=== PATIENT | female | born 1955 | race Caucasian/White ===

== ENCOUNTER → 2020-11-10 13:44 | Outpatient (CLI) | payer MEDICARE, SELFPAY ==
--- NOTE | 2020-11-10 13:49 | US_ITS ---
APPROVED REPORT Exam Type: Ankle to Brachial Index Lab Systems Analyst: CLARITZA/JOVANNA RCS, RVS Indications Claudication: Rest Pain: Cold Sensitivity PAD History of Smoking CAD Pressures/Indices Right Indices Left Indices Brachial 171.00 mmHg Brachial 175.00 mmHg Low Thigh 152.00 mmHg 0.87 Low Thigh 155.00 mmHg 0.89 Calf 172.00 mmHg 0.98 Calf 164.00 mmHg 0.94 Ankle(PT) 133.00 mmHg 0.76 Ankle(PT) 177.00 mmHg 1.01 Ankle(DP) 162.00 mmHg 0.93 Ankle(DP) 161.00 mmHg 0.92 Digit 112.00 mmHg 0.64 Digit 142.00 mmHg 0.81 Findings Right first digit pressure below normal limits. Right pulses and waveforms dampened and diminished. Left first digit pressure below normal limits. RT MONTY=0.93 LT MONTY=1.01 RT TPI=0.64 LT TPI=0.81 Conclusion RT MONTY=0.93 LT MONTY=1.01 RT TPI=0.64 LT TPI=0.81 Normal appearing resting noninvasive lower extremity arterial study. Electronically signed by : Parish Mckinney MD 11/10/2020 16:03:35
== END ==
PROVIDERS: PCP Family Medicine; Visit Provider Internal Medicine
DX: E78.5 Hyperlipidemia, unspecified (principal); I10 Essential (primary) hypertension; I20.9 Angina pectoris, unspecified; Z72.0 Tobacco use; Z86.73 Personal history of transient ischemic attack (TIA), and cerebral infarction without residual deficits; Z95.5 Presence of coronary angioplasty implant and graft; I70.213 Atherosclerosis of native arteries of extremities with intermittent claudication, bilateral legs
CPT/HCPCS: 93923

== ENCOUNTER 2020-11-16 08:19 | Day surgery (SDC) | payer MEDICARE, SELFPAY ==
[2020-11-16] VITALS (21 sets, daily range): BP systolic 98–154; BP diastolic 61–92; PULSE 40–79; RESP 17–20; TEMP 36.3–36.8; O2SAT 93–100; BMI 31.0
--- NOTE | 2020-11-16 | IR_ITS ---
APPROVED REPORT Patient Location: Outpatient Belt Cleaner: KELLY Burkett RT (R) PROCEDURES Left heart catheterization Left ventriculogram Selective coronary angiogram Drug-eluting stent deployment to the ostial proximal mid and distal dominant right coronary in a contiguous manner INDICATION Class III-IV angina pectoris, Severe in-stent restenosis, Coronary artery disease Informed consent was obtained prior to the procedure. COMPLICATIONS NONE Estimated Blood Loss: LESS THAN 10 ML TECHNIQUE One percent lidocaine used to anesthetize the right anterior aspect of the wrist. The right radial artery was accessed via the Seldinger technique. A 6 Belarusian sheath was placed in the right radial artery. 2.5 mg of verapamil, 800 mcg of nitroglycerin, 1mg Lidocaine and 5000 U Heparin were given through the arterial sheath. A Poppa catheter was used to perform left heart catheterization left ventriculogram and left coronary angiography. The Poppa catheter would not cannulate the right coronary artery. Patient was having significant spasm in the right radial artery therefore it was decided to use 4 Belarusian 3 DRC guide catheter just to perform diagnostic angiography. The left coronary system was going to be medical management. Because of this the 4 Belarusian catheter was used to perform angiography. Still cannot get adequate images therefore therapeutic heparin was administered and a Choice PT extra-support wire was placed distally in the right coronary artery to allow for catheter insertion and perform diagnostic angiography. This demonstrated a focal greater than 90% stenosis in the distal right coronary artery. There was moderate tortuosity throughout. At this point the 4 Belarusian sheath was exchanged and a 6 Belarusian 3 DRC guide catheter was used to intubate the right coronary artery. A Choice PT wire is placed distally. A guide liner was required in order to advance the balloon due to poor guide support. The balloon was initially inflated at the ostial level to allow advancement of the guide liner. The balloon was then advanced distally and inflated which allowed the advancement of the guide liner. There was predilatation distally. A 3 mm x 38 mm resolute Denver stent was placed in the distal segment deployed at 20 andree. Following this a 3.5 x 30 mm resolute Santana stent was then placed in the ostial proximal segment overlapping the first stent and deployed at 20 andree. An additional 2 5 mm balloon was required distally to further dilate and advance the guide liner. This allowed delivery of a 3 mm x 30 mm resolute Santana stent to be placed distal to the first stent which was placed yet still overlapping the stent and then deployed at 14 andree. The balloon was brought back and deployed at 2022 and 24 andree throughout the distal mid proximal and ostial segment of the right coronary. At the end of procedure NEY-3 flow was present as was NEY-3 flow at the beginning of the procedure. The end of the procedure the apparatus was removed Brilinta 180 mg orally was given on the table along with aspirin 325 the sheath was removed and hemostasis was achieved using TR banding patient was transferred to the postop holding in stable condition ANGIOGRAPHIC RESULTS The left main artery Has an ostial eccentric 10 to 20% stenosis The left anterior descending artery Has a stent in the proximal segment with mild 10% in-stent restenosis. The mid LAD then has an additional concentric 40% stenosis and is patent. A large diagonal artery has 30% proximal stenosis The circumflex artery Is a nondominant vessel gives rise to a moderate sized ramus intermedius which has proximal smooth 30 to 40% stenosis. The circumflex artery itself h
[2020-11-16 08:26] LABS: Coronavirus 19, PCR Not Detected (NotDetected); Influenza A, PCR Not Detected (NotDetected); Influenza B, PCR Not Detected (NotDetected)
--- NOTE | 2020-11-16 08:26 | CA_ITS ---
APPROVED REPORT EXAM: Comprehensive 2D, Doppler, and color-flow Echocardiogram Computer Systems Auditor: Shey Cantrell CRT Ht: 5 ft 0 in Wt: 159lbs BSA: 1.69 BP: 168/84 mmHg Indications: Chest Pain, Shortness of Breath, Fatigue, Peripheral Edema, Hyperlipidemia, Hypertension/HDD, 14 stents, TIA, smoker 2D Dimensions Aortic Root 1.95 cm LA Volume 27.50 mL LA Volume Index 16.30 mL/m2 (M/F) 16-34 M-Mode Dimensions RVDd 2.70 cm (0.9-2.6) LA Diam 4.05 cm (1.9-4.0) LVDd 4.39 cm (3.5-5.7) Ao Diam 3.57 cm (2.0-3.7) LVDs 2.94 cm (3.5-5.7) IVSd 1.85 cm (0.6-1.1) PWd 0.64 cm (0.6-1.1) EF (Teich) 61.80% FS 33.00% EDV (Teich) 87.20 mL TAPSE 1.37 (<1.7) ESV (Teich) 33.30 mL LV Diastology E Decel Time 257.00 (160-240 msec) E/A Ratio 0.60 MED E' 8.40 (< 7 cm/sec) MED A' 5.00 cm/s E'/MED E' Ratio 8.30 (>14) LAT E' 9.70 (<10 cm/sec) LAT A' 8.50 cm/s E/LAT E' Ratio 7.19 (>14) Aortic Valve AO Peak GR. 5.90 mmHg Mitral Valve MV E Max Josr. 70.00 (40-130 cm/s) MV A Velocity 116.00 (40-130 cm/s) E/A Ratio 0.60 MV Decel. Time 257.00 (160-240 ms) MV PHT 75.00 ms Pulmonary Valve PV Peak Velocity 69.00 (50-150 cm/s) Tricuspid Valve TR P. Velocity 214.00 cm/s RAP Estimate 10.00 mmHg RVSP 28.30 mmHg Left Ventricle Left atrium is mildly enlarged, left ventricle is normal size, mild concentric left ventricular hypertrophy, visually estimated ejection fraction 50% with no regional wall motion abnormality, grade 1 diastolic dysfunction seen without tissue Doppler evidence of raise left atrial pressure. Right Ventricle Right atrium and right ventricle are normal size and contractility. Aortic Valve Aortic valve is minimally thickened and fibrosed, there is no aortic stenosis or aortic insufficiency. Mitral Valve Mitral valve is grossly normal, there is mild mitral regurgitation. Tricuspid Valve Tricuspid valve grossly normal, there is mild tricuspid regurgitation, tricuspid regurgitation jet velocity is inadequate for calculation of the right ventricular systolic pressure. Pulmonic Valve Pulmonic valve is poorly visualized. Great Vessels Aortic root is normal size. Inferior vena cava is mildly dilated with normal inspiratory collapse. Pericardium Small pericardial effusion noted. Conclusion 1. Mildly enlarged left atrium, normal left ventricular size, mild concentric left ventricular hypertrophy, visually estimated ejection fraction 50% with no obvious regional wall motion abnormality, grade 1 diastolic dysfunction seen without tissue Doppler evidence of raise left atrial pressure. 2. Mild mitral and tricuspid regurgitation. 3. Small pericardial effusion noted. 4. Inferior vena cava is mildly dilated with normal inspiratory collapse. Electronically signed by : Russell Tobar, 11/16/2020 21:01:31
[2020-11-16 08:47] LABS: Basophils # 0.1 K/mm3 (0-0.2); Eosinophils # 0.1 K/mm3 (0.0-0.4); Eosinophils % 1.5 % (0.1-12.0); Hematocrit 31.5 % (37.0-47.0); Hemoglobin 10.6 g/dL (12.2-16.2); Lymphocytes # 1.5 K/mm3 (0.7-4.5); Lymphocytes % 21.8 % (10-50); Mean Corpuscular HGB Conc 33.6 g/dL (31.8-35.4); Mean Corpuscular Hemoglobin 31.6 pg (27.0-31.2); Mean Platelet Volume 8.4 fl (7.4-10.4); Monocytes # 0.5 K/mm3 (0.1-1.0); Monocytes % 6.8 % (1.7-9.3); Neutrophils # 4.8 K/mm3 (1.8-7.8); Neutrophils % 68.9 % (37.0-80.0); Platelet Count 286 K/mm3 (142-424); Red Blood Count 3.36 M/mm3 (4.20-5.40)
[2020-11-16 08:48] LABS: Chloride 110 mmol/L (98-107); Potassium 4.8 mmoL/L (3.5-5.1); Sodium 146 mmol/L (136-145)
[2020-11-16 08:51] LABS: Anion Gap 12.8 mEq/L (5-15); Blood Urea Nitrogen 19 mg/dl (7-17); Carbon Dioxide 28 mmol/L (22.0-30.0); Creatinine Clearance Estimated 64 mL/min (50-200); Estimated Glomerular Filt Rate 72 ml/min (>60); GFR (African American) 87 ML/MIN (>60)
[2020-11-16 08:52] LABS: Glucose 105 mg/dl (74-100)
[2020-11-16 14:41] LABS: CATHL Activated Clotting Time 255 SEC (74-125)
[2020-11-16 14:44] LABS: CATHL Activated Clotting Time 125 SEC (74-125)
[2020-11-16 14:45] LABS: CATHL Activated Clotting Time 344 SEC (74-125)
--- NOTE | 2020-11-16 14:51 | PC.NURSE ---
attempted to take 2 of air out of tracelet and patient started to bleed, replaced with 2 of air. will attempt again in 15mins
--- NOTE | 2020-11-16 20:02 | ECG_ITS ---
APPROVED REPORT Exam: Resting ECG HR:54 bpm ECG Measurements Heart Rate 54 AXES TX 132 P 45 QRSd 88 QRS 40 QT 498 T 77 QTc 472 Conclusion Sinus bradycardia Low voltage QRS Nonspecific T wave abnormality Prolonged QT Abnormal ECG Electronically signed by : Ger Morales MD 11/19/2020 11:40:39
--- NOTE | 2020-11-16 20:12 | XR_ITS ---
PROCEDURE INFORMATION: Exam: XR Chest Exam date and time: 11/16/2020 8:12 PM Age: 65 years old Clinical indication: Shortness of breath TECHNIQUE: Imaging protocol: XR of the chest. Views: 1 view. COMPARISON: No relevant prior studies available. FINDINGS: Lungs: Opacity at the medial right lung base. Pleural spaces: No pneumothorax. Heart/Mediastinum: Partial obscuration of the lower right heart border. No cardiomegaly. Bones/joints: No acute abnormality. IMPRESSION: Opacity at the medial right lung base which may be secondary to atelectasis, pneumonia, or soft tissue overlap for example secondary to diaphragmatic eventration.
[2020-11-16 20:32] LABS: POC Glucose,Bedside 127 (70-110)
--- NOTE | 2020-11-16 21:38 | PC.NURSE ---
RN went to assess patient and patient complained of increased Shortness of breath. Vital signs were stable. see documentation for vital signs. 2L O2 applied to patient after vitals obtained. no complaints of pain voiced to RN. chief passenger ship steward/stewardess called nurse and notified of patients heart rate in 30's. RN Paged Bj at 8pm. Orders given were to call a rapid red and obtain a stat EKG. rapid red called at 8:01 PM. and ekg was also performed at this time. Dr. Wasserman consulted with Dr. Gage, and bj advised to d/c brillinta and give 300 mg of plavix. No further concerns noted by RN. O2 removed around 9:30 pm, and patient tolerated well.
[2020-11-17] VITALS: BP 113/53; PULSE 68; PULSE 70; RESP 17; TEMP 36.7; O2SAT 92
--- NOTE | 2020-11-17 03:21 | PC.NURSE ---
A&Ox4. No complaints of pain noted. No more complaints of SOA. Patient ambulated to bathroom with stand by assist. VSS. No further concerns voiced to RN
--- NOTE | 2020-11-17 03:54 | PC.NURSE ---
Right radial cath site is clean dry and intact. Patient does not complain of pain at site.
[2020-11-17 04:00] VITALS: BP 127/69; PULSE 60; PULSE 67; RESP 18; TEMP 37.2; O2SAT 95
[2020-11-17 05:05] VITALS: BMI 31.2
[2020-11-17 07:36] LABS: Basophils # 0.1 K/mm3 (0-0.2); Basophils % 0.7 % (0.1-2.0); Eosinophils # 0.1 K/mm3 (0.0-0.4); Eosinophils % 0.6 % (0.1-12.0); Hematocrit 29.6 % (37.0-47.0); Hemoglobin 10.1 g/dL (12.2-16.2); Lymphocytes # 1.7 K/mm3 (0.7-4.5); Mean Corpuscular HGB Conc 34.1 g/dL (31.8-35.4); Mean Corpuscular Hemoglobin 31.8 pg (27.0-31.2); Mean Corpuscular Volume 93.4 fl (81-99); Mean Platelet Volume 7.9 fl (7.4-10.4); Monocytes # 0.4 K/mm3 (0.1-1.0); Monocytes % 4.8 % (1.7-9.3); Neutrophils # 6.3 K/mm3 (1.8-7.8); Platelet Count 291 K/mm3 (142-424); Red Blood Count 3.17 M/mm3 (4.20-5.40); Red Cell Distribution Width 13.8 % (11.5-17.5); White Blood Count 8.4 K/mm3 (4.8-10.8)
[2020-11-17 07:45] LABS: Chloride 110 mmol/L (98-107); Potassium 3.9 mmoL/L (3.5-5.1); Sodium 143 mmol/L (136-145)
[2020-11-17 07:48] LABS: Blood Urea Nitrogen 15 mg/dl (7-17); Calcium 9.1 mg/dl (8.4-10.2); Carbon Dioxide 25 mmol/L (22.0-30.0); Creatinine Clearance Estimated 64 mL/min (50-200); Estimated Glomerular Filt Rate 100 ml/min (>60); GFR (African American) 121 ML/MIN (>60); Glucose 107 mg/dl (74-100)
[2020-11-17 08:00] VITALS: BP 140/75; PULSE 59; PULSE 67; RESP 18; TEMP 36.4; O2SAT 93
[2020-11-17 08:05] LABS: Anion Gap 11.9 mEq/L (5-15)
--- NOTE | 2020-11-17 08:40 | HMH.PHACLD ---
Annalise Salazar has received discharge medication counseling on the following medications: -PLAVIX -ALDACTONE -LASIX -ALTACE
--- NOTE | 2020-11-17 09:00 | PC.NURSE ---
Went over DC instruction with patient, she verbalized understanding. Cath site is covered with gauze and tegaderm. It is clean, dry and intact. Sling in place to remind patient to not use right wrist.
== END 2020-11-17 11:23 | disposition home or self-care (01) ==
LOC: CATHLAB 08:20 → 2ND 14:22
PROVIDERS: PCP Family Medicine; Visit Provider Internal Medicine
DX: E78.5 Hyperlipidemia, unspecified (principal); I10 Essential (primary) hypertension; I70.223 Atherosclerosis of native arteries of extremities with rest pain, bilateral legs; F17.210 Nicotine dependence, cigarettes, uncomplicated; Z86.73 Personal history of transient ischemic attack (TIA), and cerebral infarction without residual deficits; Z95.5 Presence of coronary angioplasty implant and graft; I25.110 Atherosclerotic heart disease of native coronary artery with unstable angina pectoris; T82.855A Stenosis of coronary artery stent, initial encounter; Y83.1 Surgical operation with implant of artificial internal device as the cause of abnormal reaction of the patient, or of later complication, without mention of misadventure at the time of the procedure
CPT/HCPCS: C1874; 36415; 71045; 80048; 82962; 85025; 85347; 92928; 93005; 93306; 93458; 99152; 99153; C1725; C1769; C1894; C9600; J1644; Q9967; U0003

== ENCOUNTER → 2021-02-28 13:03 | Outpatient (CLI) | payer MEDICARE, SELFPAY ==
[2021-02-28 13:50] VITALS: PULSE 81; PULSE 84
--- NOTE | 2021-02-28 14:54 | CT_ITS ---
PROCEDURE: CT LUNG SCREENING CLINICAL INDICATION: lung cancer screening COMPARISON: No exams were available for comparison TECHNIQUE: The exam was performed on a GE Light Speed [address] scanner using 2.90 mGy CTDI. A low dose helical CT CHEST was performed on a multi-detector scanner. All CT scans at the facility use one or more dose reduction, viz: automated exposure control, ma/kV adjustment per patient size (including targeted exams where dose is matched to indication, i.e. head), or iterative reconstruction technique. The LDCT was performed in a facility that meets the criteria for the screening program. Data regarding this exam was submitted to ACR which is an approved registry. The order for this exam indicates that it came as a result of a lung cancer screening counseling shard decision-making visit that included all the elements required of such a visit including smoking cessation. The radiologist interpreting this exam meets the CMS criteria for the LDCT lung cancer screening program. The exam is reported using the Lung-RADS classification scale and reported to the ACR registry. NOTE: This study was performed for the specific purposes of lung cancer screening and is not an alternative to diagnostic chest CT. RADIATION DOSE: CTDI vol(CT dose Index-volume) = 2.90mG DLP (Dose Length Product) = 96.38 mGcm FINDINGS: 3 mm fissural nodule left major fissure benign-appearing. No suspicious pulmonary nodules identified OTHER FINDINGS: Coronary artery calcifications and/or stents. There is thickening of the pericardium anteriorly measuring up to 10 mm consistent with small pericardial effusion. IMPRESSION: Lung-RADS Category 2 Benign Appearance or Behavior Follow-up: Continue annual screening with LDCT in 12 months Thickening of the pericardium suggesting small pericardial effusion Dictated by: Parish Mckinney MD 03/05/2021 08:48 Parish Mckinney MD in [place] 03/05/2021 08:48
== END ==
PROVIDERS: PCP Family Medicine; Visit Provider Internal Medicine Pulmonary Disease
DX: R06.00 Dyspnea, unspecified (principal); F17.210 Nicotine dependence, cigarettes, uncomplicated
CPT/HCPCS: 71271; 94060; 94618; 94640; 94727; 94729

== ENCOUNTER 2022-10-03 13:47 | Observation (INO) | payer MEDICARE, SELFPAY ==
--- NOTE | 2022-10-03 13:56 | XR_ITS ---
FINAL REPORT CLINICAL HISTORY: chest pain, patient to have a cardiac cath procedure tomorrow morning, prior cardiac caths with stents place. Smoker. FINDINGS: The heart size is normal. The mediastinum is within normal limits. There is no acute cardiopulmonary process. There is no pleural effusion. There is no pneumothorax. The bony thorax is intact. IMPRESSION: No acute cardiopulmonary process. Reviewed, Interpreted and Dictated by Morgan Bertrand MD Transcribed by Yordy Jordan Authenticated and [facility]
[2022-10-03 14:04] VITALS: BP 134/82; PULSE 89; RESP 17; TEMP 37; O2SAT 97; BMI 37.4
--- NOTE | 2022-10-03 14:07 | HMH.PHAINT1 ---
Pharmacy Intervention Comments: MEDICATION RECONCILIATION COMPLETED ON PATIENT USING EXTERNAL FILL HISTORY FROM PHARMACY. -CAMELIA QUEZADA, SUSANNAD
[2022-10-03 16:00] VITALS: BP 107/65; PULSE 67; RESP 15; O2SAT 98
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
--- NOTE | 2022-10-03 16:07 | EXP.CARD.PN ---
Subjective Subjective Date: 10/03/22 Time: 16:07 Principal diagnosis: chest pain Interval history: Pt was seen in office today. Note from office visit Patient here for thinks heart is giving out Has been having cp & pressure with activity & at rest SOB with activity & laying down Dizziness & lightheadedness Swelling in left leg sometimes & hands Numbness in arms sometimes Fatigue CAD-having angina. SAEID NOV 2020. Hx of SAEID(total 14). DAPT Plavix/asa. HTN-BP stable.Patient weight up 5 lbs HLD-on statin therapy Tobacco abuse present Tobacco cessation advised and counseled. Having unstable angina. Offered hospital admission, patient is agreeable. PLAN: Admit-Typical angina. RTC after hosp discharge. Exam Data for Last 24 hours Vital signs and Labs for Last 24 Hours: Temp Pulse Resp BP Pulse Ox 98.6 F 89 17 134/82 97 10/03/22 14:04 10/03/22 14:04 10/03/22 14:04 10/03/22 14:04 10/03/22 14:04 I & O for Last 24 hours: Intake & Output 10/01/22 10/02/22 10/03/22 10/04/22 11:59 11:59 11:59 11:59 Intake Total 0 / 0 Balance 0 / 0 Weight 191 lb 9 oz Constitutional Constitutional: no acute distress *Routine HEENT Exam Head: Present normocephalic Eye: Present EOMI and PERRL ENT: Present mucous membranes moist *Routine Neck Exam Neck: Present supple; Absent lymphadenopathy *Routine Respiratory Exam Respiratory: Present CTA bilaterally *Routine Cardiovascular Exam Cardiovascular: Present RRR *Routine Abdominal Exam Abdominal: Present soft and normoactive bowel sounds; Absent tenderness *Routine Extremities Exam Extremities: Absent cyanosis, clubbing or edema *Routine Skin Exam Skin: Present warm; Absent rash *Routine Neurological Exam Neurological: Present alert and oriented X3 Progress Note: A&P Assessment and plan (1) Typical angina: Status: Acute (2) Coronary artery disease: Problem details: NOV 2020-Successful reconstruction of the dominant right coronary severe disease reduced to 0% with 3 contiguous drug-eluting stents as described above Persistent severe stenosis in a small circumflex artery which is severe however not appropriate for percutaneous intervention Mild to moderate disease in the LAD which is also nonflow limiting Reduced ejection fraction with mild anterior wall hypokinesis Moderate to severely elevated LVEDP Status: Chronic (3) History of coronary artery stent placement: Status: Chronic (4) HTN (hypertension): Status: Chronic (5) HLD (hyperlipidemia): Status: Chronic (6) Tobacco abuse: Status: Chronic Assessment and Plan Assessment and Plan for All Diagnoses:: Admitted for angina with plans for LHC in AM. NPO after midnight. Check labs Continue home meds of aspirin 81 mg daily Plavix 75 mg daily Continue Coreg but increase to 6.25 mg twice daily Furosemide 40 mg daily Spironolactone 50 mg daily Rosuvastatin 10 mg daily Ramipril 5 mg daily Potassium 10 mEq daily
[2022-10-03 16:11] VITALS: PULSE 80
[2022-10-03 17:42] LABS: Coronavirus 19, PCR Not Detected (NotDetected); Influenza A, PCR Not Detected (NotDetected); Influenza B, PCR Not Detected (NotDetected)
[2022-10-03 18:03] LABS: Troponin I < 0.01 ng/ml (0.00-0.034)
--- NOTE | 2022-10-03 18:17 | PC.NURSE ---
A&OX4. TOLERATING RA WELL. PT UP INDEPENDENTLY IN ROOM. HAS BEEN QUITE ANXIOUS, BUT SEEMS TO BE BETTER NOW. HAS HAD SOME CHEST PAIN, TX WITH SL AND TD NITRO, EFFECTIVENESS NOTED. CONSENT SIGNED FOR HEART CATH TOMORROW. PT HAS NO OTHER NEEDS THUS FAR. VSS.
[2022-10-03 20:00] VITALS: BP 111/47; PULSE 70; PULSE 73; RESP 16; TEMP 36.6; O2SAT 95
[2022-10-03 21:19] LABS: POC Glucose,Bedside 90 (70-110)
--- NOTE | 2022-10-03 21:37 | PC.NURSE ---
pt refused 2100 dose of lipitor 20mg. stated it makes me puke everytime. im not taking that
--- NOTE | 2022-10-03 22:05 | PC.NURSE ---
pt took shower
[2022-10-03 23:57] LABS: Troponin I < 0.01 ng/ml (0.00-0.034)
[2022-10-04] VITALS (22 sets, daily range): BP systolic 87–123; BP diastolic 53–86; PULSE 57–88; RESP 15–18; TEMP 36.3–36.9; O2SAT 89–100; BMI 38.3
[2022-10-04 06:06] LABS: Chloride 103 mmol/L (98-107); Sodium 136 mmol/L (136-145)
[2022-10-04 06:07] LABS: Potassium 4.7 mmoL/L (3.5-5.1)
[2022-10-04 06:08] LABS: Basophils # 0.1 K/mm3 (0-0.2); Basophils % 0.8 % (0.1-2.0); Eosinophils # 0.2 K/mm3 (0.0-0.4); Eosinophils % 3.1 % (0.1-12.0); Hemoglobin 11.8 g/dL (12.2-16.2); Lymphocytes # 1.9 K/mm3 (0.7-4.5); Lymphocytes % 33.7 % (10-50); Mean Corpuscular HGB Conc 32.8 g/dL (31.8-35.4); Mean Corpuscular Hemoglobin 29.1 pg (27.0-31.2); Mean Corpuscular Volume 88.5 fl (81-99); Mean Platelet Volume 8.3 fl (7.4-10.4); Monocytes # 0.4 K/mm3 (0.1-1.0); Monocytes % 6.6 % (1.7-9.3); Neutrophils # 3.2 K/mm3 (1.8-7.8); Neutrophils % 55.8 % (37.0-80.0); Platelet Count 212 K/mm3 (142-424); Red Blood Count 4.07 M/mm3 (4.20-5.40); White Blood Count 5.8 K/mm3 (4.8-10.8)
[2022-10-04 06:09] LABS: Alanine Aminotransferase 20 U/L (12-78); Albumin Level 3.6 g/dl (3.5-5.0); Albumin/Globulin Ratio 1.4 (1.1-1.8); Alkaline Phosphatase 91 U/L (38-126); Anion Gap 12.7 mEq/L (5-15); Aspartate Amino Transferase 23 U/L (14-36); Bilirubin,Total 0.3 mg/dl (0.2-1.3); Blood Urea Nitrogen 26 mg/dl (7-17); Calcium 9.2 mg/dl (8.4-10.2); Carbon Dioxide 25 mmol/L (22.0-30.0); Cholesterol 166 mg/dl (140-200); Creatinine Clearance Estimated 70 mL/min (50-200); Estimated Glomerular Filt Rate 50 ml/min (>60); GFR (African American) 60 ML/MIN (>60); Globulin 2.6 g/dL (1.3-3.2); Glucose 110 mg/dl (74-100); Total Protein,Serum 6.2 g/dl (6.3-8.2); Triglycerides 360 mg/dl (30-150); VLDL Cholesterol 72 mg/dL (0-40)
[2022-10-04 06:10] LABS: Chol/HDL Ratio 7.5 (1-3.5); HDL Cholesterol 22 mg/dl (40-60); Magnesium 2.4 mg/dl (1.6-2.3)
[2022-10-04 06:20] LABS: Direct LDL Cholesterol 88.02 mg/dL (100-129)
[2022-10-04 07:04] LABS: Troponin I < 0.01 ng/ml (0.00-0.034)
--- NOTE | 2022-10-04 08:51 | EXP.CARD.PN ---
Subjective Subjective Date: 10/04/22 Time: 08:51 Principal diagnosis: chest pain Interval history: 66-year-old white female in bed in no acute distress. She relates having some chest discomfort overnight that resolved with both sublingual nitroglycerin and nitro patch. Unfortunately patch rubbed off overnight and she complains of some mild chest discomfort this morning rated as a 2 out of 10. We will reapply Nitropatch at this time with plans to proceed with left heart catheterization later today. Troponins this admission are normal Exam Data for Last 24 hours Vital signs and Labs for Last 24 Hours: Temp Pulse Resp BP Pulse Ox 98.0 F 73 18 87/53 L 93 L 10/04/22 07:26 10/04/22 07:26 10/04/22 07:26 10/04/22 07:26 10/04/22 07:26 Laboratory Results - last 24 hr 10/03/22 14:50: SARS-CoV-2 (PCR) Not detected, Influenza A Untype (PCR) Not detected, Influenza Type B (PCR) Not detected 10/03/22 17:21: Troponin I < 0.01 10/03/22 20:21: POC Glucose 90 10/03/22 23:15: Troponin I < 0.01 10/04/22 05:43: Troponin I < 0.01 10/04/22 05:43: WBC 5.8, RBC 4.07 L, Hgb 11.8 L, Hct 36.0 L, MCV 88.5, MCH 29.1, MCHC 32.8, RDW 14.0, Plt Count 212, MPV 8.3, Neut % (Auto) 55.8, Lymph % (Auto) 33.7, Labette % (Auto) 6.6, Eos % (Auto) 3.1, Baso % (Auto) 0.8, Neut # (Auto) 3.2, Lymph # (Auto) 1.9, Labette # (Auto) 0.4, Eos # (Auto) 0.2, Baso # (Auto) 0.1 10/04/22 05:43: Sodium 136, Potassium 4.7, Chloride 103, Carbon Dioxide 25, Anion Gap 12.7, BUN 26 H, Creatinine 1.10 H, Estimated Creat Clear 70, Estimated GFR 50 L, Est GFR ( Amer) 60, Glucose 110 H, Calcium 9.2, Magnesium 2.4 H, Total Bilirubin 0.3, AST 23, ALT 20, Alkaline Phosphatase 91, Total Protein 6.2 L, Albumin 3.6, Globulin 2.6, Albumin/Globulin Ratio 1.4, Triglycerides 360 H, Cholesterol 166, LDL Cholesterol Direct 88.02 L, VLDL Cholesterol 72 H, HDL Cholesterol 22 L, Cholesterol/HDL Ratio 7.5 H I & O for Last 24 hours: Intake & Output 10/01/22 10/02/22 10/03/22 10/04/22 11:59 11:59 11:59 11:59 Intake Total 978 / 978 Output Total 400 / 400 Balance 578 / 578 Weight 195 lb 6.4 oz Constitutional Constitutional: no acute distress *Routine Respiratory Exam Respiratory: Present wheezes *Routine Cardiovascular Exam Cardiovascular: Present RRR *Routine Extremities Exam Extremities: Absent edema Progress Note: A&P Assessment and plan (1) Typical angina: Status: Acute (2) Coronary artery disease: Problem details: NOV 2020-Successful reconstruction of the dominant right coronary severe disease reduced to 0% with 3 contiguous drug-eluting stents as described above Persistent severe stenosis in a small circumflex artery which is severe however not appropriate for percutaneous intervention Mild to moderate disease in the LAD which is also nonflow limiting Reduced ejection fraction with mild anterior wall hypokinesis Moderate to severely elevated LVEDP Status: Chronic (3) HTN (hypertension): Status: Chronic (4) HLD (hyperlipidemia): Status: Chronic (5) Tobacco abuse: Status: Chronic (6) History of CVA (cerebrovascular accident): Status: Chronic Assessment and Plan Assessment and Plan for All Diagnoses:: 1. Unstable angina Proceed with left heart catheterization today 2. Asthma Will give nebulizer treatment this morning due to wheezing on exam 3. Hyperlipidemia LDL 88 on statin therapy 4. Mild anemia with hemoglobin 11.8 5. Mild renal insufficiency with creatinine of 1.1 6. CAD with prior multivessel stenting, last in November 2020 with stents to RCA and circumflex arteries 7. Ischemic cardiomyopathy with EF 50% and anterior wall hypokinesis noted at the time of the cath 11/2020 Echo, 2020, EF 50% with no obvious regional wall motion abnormality, grade 1 diastolic dysfunction, mild MR/TR 8. Diastolic dysfunction with LVEDP 25-30 mmHg at the time of cath 2020 SCAI score A9
--- NOTE | 2022-10-04 09:31 | IR_ITS ---
APPROVED REPORT Patient Location: Inpatient PROCEDURES Selective coronary angiogram Drug-eluting stent deployment to the ostial proximal dominant right coronary artery with additional stenting to the distal right coronary artery in a noncontiguous manner INDICATION Coronary artery disease, Unstable angina, In-stent restenosis Informed consent was obtained prior to the procedure. COMPLICATIONS None Estimated Blood Loss: Less than 10 mls TECHNIQUE One percent lidocaine was used to anesthetize the right groin. The right femoral artery was accessed via the Seldinger technique. A 4-German sheath was placed in the right femoral artery. The JL-4 and JR-4 catheter was also used to perform left heart catheterization left ventriculogram and selective coronary angiogram. At the end of the procedure the patient was transferred to the post-op holding area in stable condition for arterial sheath removal. At the end the diagnostic angiogram therapeutic heparin is administered and the 4 German sheath was exchanged for a 6 German sheath. A 3 DRC guide catheter was placed in the dominant right coronary followed by Choice PT extra-support wire. A 4 mm x 12 mm [place] frontier stent was deployed at 24 andree in the proximal segment which reduce the stenosis to 0%. After the stent was deployed and the balloon removed there was still critical dampening therefore an additional 4 mm x 12 mm [place] frontier stent was deployed at 26 andree reducing the ostial stenosis to 0%. Following this the guide catheter was deep-seated and an additional 4 mm x 22 mm [place] frontier stent was deployed at 24 andree distally which reduce the stenosis to 0%. NEY-3 flow was present before and after the procedure. At the end of procedure the apparatus was removed the groin was reprepped sheath was removed and hemostasis was achieved using Perclose device patient was transferred to the postop putting in stable condition ANGIOGRAPHIC RESULTS The left main artery Has a stent in the ostial proximal mid distal segment which extends into the LAD. The stent is widely patent The left anterior descending artery Has a stent which originates off the left main artery and is widely patent in the proximal segment. There is an 80% stenosis at a 2 mm to 2.5 mm diameter mid LAD vessel. The entire LAD is small caliber The circumflex artery Nondominant proximally occluded The right coronary artery Large and dominant and has an ostial 90% stenosis followed by a proximal concentric 90% stenosis followed by an additional mid vessel concentric 90% stenosis followed by an additional diffuse 30% in-stent restenotic area The SALMERON ventriculogram reveals Not performed The left ventricular end-diastolic pressure Not measured IMPRESSION Critical disease in the right coronary as described above with successful percutaneous revascularization increasing to 3.5 mm previous stent up to 4.5 mm in diameter with a new drug-eluting stents as described above Severe disease in a small caliber mid LAD which is not ideal for stenting nor bypass surgery due to a small caliber and smaller distal runoff PLAN 1. Dual antiplatelet therapy 2. Avoidance of tobacco products 3. Maximize antianginal medications 4. I believe patient's angina stems from the right coronary artery. Should she continue to have angina following stenting this right coronary artery we can consider bringing her back and stenting the LAD. This is a small caliber vessel and not ideal for stenting but it is possible 5. Cardiac rehabilitation 6. LDL less than 55 into that high intensity statin Electronically signed by : Og Gage MD 10/04/2022 13:40:37
[2022-10-04 13:53] LABS: CATHL Activated Clotting Time 374 SEC (74-125)
--- NOTE | 2022-10-04 15:08 | PC.NURSE ---
Pt is up to chair. Has not c/o any discomfort. DSGs to abdomen is C/D/I. Pt has ambulated to BR and tolerated. IV ABX administered. Diet tolerated. Call light within reach.
--- NOTE | 2022-10-04 15:10 | PC.NURSE ---
(R) femoral cath site is C/D/I. No hematoma noted. VS currently stable. Pt is currently supine. Call light within reach.
--- NOTE | 2022-10-04 16:21 | EXP.DC.SUM ---
General Admission date:: 10/03/22 Discharge date: 10/04/22 HPI HPI HPI: Patient presents from cardiology clinic with chest discomfort. Patient describes chest discomfort as 5/10, tight, pressure-like, constant, better with nitroglycerin. Patient admitted for cardiac catheterization procedure tomorrow. Admits to 17 prior cardiac catheterization and stent placements in the past. Also admits to stroke x2; most recent last February 2021. Admits to over 50 TIAs. Also admits to COPD but uses no home oxygen. Hospital Course Hospital Course Hospital Course: Patient presented from cardiology clinic with chest discomfort, and received cardiac catheterization 10/04/2022. Patient had right RCA stent placed. Patient then monitored for several hours, and discharged home with instructions to follow-up with both cardiology and primary care physician on outpatient basis. Patient's Crestor was increased from 10mg to [address] Overton at time of hospital disposition per cardiology recommendation for high intensity statin therapy at time of hospital disposition. [facility] 2 months with Exam Data for Last 24 hours Vital signs and Labs for Last 24 Hours: Temp Pulse Resp BP Pulse Ox 97.4 F L 63 16 91/56 L 93 L 10/04/22 14:45 10/04/22 15:45 10/04/22 15:45 10/04/22 15:45 10/04/22 15:45 Laboratory Results - last 24 hr 10/03/22 14:50: SARS-CoV-2 (PCR) Not detected, Influenza A Untype (PCR) Not detected, Influenza Type B (PCR) Not detected 10/03/22 17:21: Troponin I < 0.01 10/03/22 20:21: POC Glucose 90 10/03/22 23:15: Troponin I < 0.01 10/04/22 05:43: Troponin I < 0.01 10/04/22 05:43: WBC 5.8, RBC 4.07 L, Hgb 11.8 L, Hct 36.0 L, MCV 88.5, MCH 29.1, MCHC 32.8, RDW 14.0, Plt Count 212, MPV 8.3, Neut % (Auto) 55.8, Lymph % (Auto) 33.7, [place] % (Auto) 6.6, Eos % (Auto) 3.1, Baso % (Auto) 0.8, Neut # (Auto) 3.2, Lymph # (Auto) 1.9, [place] # (Auto) 0.4, Eos # (Auto) 0.2, Baso # (Auto) 0.1 10/04/22 05:43: Sodium 136, Potassium 4.7, Chloride 103, Carbon Dioxide 25, Anion Gap 12.7, BUN 26 H, Creatinine 1.10 H, Estimated Creat Clear 70, Estimated GFR 50 L, Est GFR ( Amer) 60, Glucose 110 H, Calcium 9.2, Magnesium 2.4 H, Total Bilirubin 0.3, AST 23, ALT 20, Alkaline Phosphatase 91, Total Protein 6.2 L, Albumin 3.6, Globulin 2.6, Albumin/Globulin Ratio 1.4, Triglycerides 360 H, Cholesterol 166, LDL Cholesterol Direct 88.02 L, VLDL Cholesterol 72 H, HDL Cholesterol 22 L, Cholesterol/HDL Ratio 7.5 H 10/04/22 13:06: Activated Clotting Time 374 H* I & O for Last 24 hours: Intake & Output 10/01/22 10/02/22 10/03/22 10/04/22 23:59 23:59 23:59 23:59 Intake Total 240 / 240 738 / 738 Output Total 200 / 200 200 / 200 Balance 40 / 40 538 / 538 Weight 86.891 kg 88.632 kg Constitutional Constitutional: no acute distress and cooperative *Routine HEENT Exam Head: Present normocephalic Eye: Present EOMI and normal accommodation ENT: Present mucous membranes moist *Routine Neck Exam Neck: Present supple and full ROM *Routine Respiratory Exam Respiratory: Present CTA bilaterally; Absent accessory muscle use *Routine Cardiovascular Exam Cardiovascular: Present RRR and Normal S1 *Routine Abdominal Exam Abdominal: Present soft and normoactive bowel sounds *Routine Rectal Exam Comments: deferred *Routine Exam Comments: deferred *Routine Extremities Exam Extremities: Present full ROM *Routine Skin Exam Skin: Present intact and warm *Routine Neurological Exam Neurological: Present alert and oriented X3 Results Data Completed and Pending Labs on day of discharge: Labs from last 24 hours 10/04/22 10/04/22 10/04/22 13:06 05:43 05:43 WBC 5.8 RBC 4.07 L Hgb 11.8 L Hct 36.0 L MCV 88.5 MCH 29.1 MCHC 32.8 RDW 14.0 Plt Count 212 MPV 8.3 Neut % (Auto) 55.8 Lymph % (Auto) 33.7 [place] % (Auto) 6.6 Eos % (Auto) 3.1 Baso % (Auto) 0.8 Neut # (Auto) 3.2 Lymph # (Auto) 1.9 [place] #
--- NOTE | 2022-10-04 16:22 | HMH.PHACL ---
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 I VERIFIED THAT SHE WAS DISCHARGING ON ALL APPROPRIATE MEDICATIONS. I SPOKE WITH HER NURSE, PEDRO, AND SHE STATED SHE WOULD RELAY THE CHANGE ON THE ROSUVASTATIN TO 20 MG DAILY FROM 10 MG DAILY.
--- NOTE | 2022-10-06 13:09 | CARE MANAGER ---
Attempted to contact patient related to hospital discharge x2. No VM option.
== END 2022-10-04 18:50 | disposition home or self-care (01) ==
PROVIDERS: Internal Medicine; Admitting Provider Internal Medicine; Visit Provider Internal Medicine
DX: I25.110 Atherosclerotic heart disease of native coronary artery with unstable angina pectoris (principal); I10 Essential (primary) hypertension; E78.2 Mixed hyperlipidemia; F17.210 Nicotine dependence, cigarettes, uncomplicated; T82.855A Stenosis of coronary artery stent, initial encounter; Z95.5 Presence of coronary angioplasty implant and graft; R07.9 Chest pain, unspecified; Z79.02 Long term (current) use of antithrombotics/antiplatelets; Z79.899 Other long term (current) drug therapy
CPT/HCPCS: G0378; 36415; 71045; 80053; 80061; 82962; 83735; 84484; 85025; 85347; 87635; 87636; 92928; 93454; 94640; 99152; 99153; C1725; C1760; C1769; C1876; C9600; C9803; J1644; Q9967; U0003; U0005